=== PATIENT | male | born 1985 | race Two or more races ===

== ENCOUNTER 2018-12-09 10:54 | Emergency (ER) | payer BC ==
[~2018-12-09] VITALS: Ht 177.8 cm; Wt 99.8 kg
--- NOTE | 2018-12-09 11:22 | NUR ---
PT C/O SUDDEN SHARP LLQ ABD PAIN AFTER COUGHING AT 0930 TODAY. HX KIDNEY STONE. AAOX4, VSS. DENIES CP, SOB, DIZZINESS, N/V/D @ THIS TIME. DR. WAN @ BS FOR EVAL & WILL CONT TO MONITOR.
[2018-12-09 11:55] LABS: BASOPHILS # (AUTO) 0.1 /CMM (0.0-0.2); BASOPHILS % (AUTO) 1.4 % (0.0-2.0); EOSINOPHILS % (AUTO) 7.1 % (0.0-6.0); HEMATOCRIT 44 % (39-51); HEMOGLOBIN 15.6 g/dL (13.5-17.5); LYMPHOCYTES # (AUTO) 1.5 /CMM (0.8-4.8); LYMPHOCYTES % (AUTO) 26.5 % (20.0-44.0); MEAN CORPUSCULAR HGB CONC 35 g/dl (31.0-36.0); MEAN CORPUSCULAR VOLUME 90 fL (80-96); MONOCYTES # (AUTO) 0.4 /CMM (0.1-1.30); MONOCYTES % (AUTO) 7.9 % (2.0-12.0); NEUTROPHILS # (AUTO) 3.2 /CMM (1.8-8.9); NEUTROPHILS % (AUTO) 57.1 % (43.0-81.0); PLATELET COUNT (AUTO) 203 /CMM (150-450); RED BLOOD CELL COUNT(AUTO) 4.89 MIL/uL (4.5-6.0); WHITE BLOOD COUNT (AUTO) 5.7 K/uL (4.3-11.0)
[2018-12-09 12:04] LABS: POTASSIUM 4.1 mmol/L (3.5-5.1)
--- NOTE | 2018-12-09 12:08 | NUR ---
PT TO RADIOLOGY DEPT VIA .
[2018-12-09 12:09] LABS: ALBUMIN 4.3 g/dL (3.4-5.0); BILIRUBIN,TOTAL 0.4 mg/dL (0.2-1.0); TOTAL PROTEIN, SERUM 7.7 g/dL (6.4-8.2)
[2018-12-09] MEDS ORDERED: ACETAMINOPHEN ES 500 MG TABLET ONE (12:20)
[2018-12-09] MEDS ORDERED: ONDANSETRON 4 MG TAB.RAPDIS ONE (12:20)
[2018-12-09] MEDS: ONDANSETRON 4 MG TAB.RAPDIS SL ONE (12:23)
[2018-12-09] MEDS: ACETAMINOPHEN ES 500 MG TABLET PO ONE (12:27)
[2018-12-09 12:47] LABS: APPEARANCE,URINE Clear (CLEAR); BILIRUBIN,URINE Negative (NEGATIVE); BLOOD, URINE Negative Ery/uL (NEGATIVE); COLOR,URINE Yellow (YELLOW); KETONES,URINE Negative (NEGATIVE); LEUKOCYTE ESTERASE ,URINE Trace (NEGATIVE); NITRITE, URINE Negative (NEGATIVE); PH,URINE 7.5 (5.0-8.0); PROTEIN,URINE Trace mg/dl (NEGATIVE); UGLUCOSE Negative (NEGATIVE); UROBILINOGEN,URINE 0.2 EU/dL (0.2)
[2018-12-09 13:01] LABS: RBC,URINE 0-2 /HPF (0-2); WBC,URINE 0-3 /HPF (0-3)
[2018-12-09 13:02] LABS: BACTERIA,URINE Few /HPF (None Seen); SQUAMOUS EPITHELIAL CELL,UR Few /HPF (None Seen)
[2018-12-09 14:15] VITALS: BP 138/86
--- NOTE | 2018-12-09 14:16 | NUR ---
IV removed. Catheter intact and site benign. Pressure and 4x4 applied to site. No bleeding noted.Patient discharged to home in stable condition. Written and verbal after care instructions given. Patient verbalizes understanding of instruction.
== END 2018-12-09 14:20 | disposition home or self-care (01) ==
LOC: ER 10:56
DX: M94.0 Chondrocostal junction syndrome [Tietze] (principal); E78.00 Pure hypercholesterolemia, unspecified; J45.909 Unspecified asthma, uncomplicated; I10 Essential (primary) hypertension; F17.210 Nicotine dependence, cigarettes, uncomplicated; Z60.2 Problems related to living alone
CPT/HCPCS: 36415; 71111; 80053; 81001; 83690; 84484; 85025; 85378; 93005; 99284; Q0162; 81000-TC